=== PATIENT | female | born 1960 | race Caucasian/White ===

== ENCOUNTER 2018-11-22 13:32 | Outpatient (CLI) | payer MEDICARE, MEDICAID ==
--- NOTE | 2018-11-22 15:43 | MRI ---
MRI RIGHT SHOULDER 11/22/18 PROVIDED CLINICAL HISTORY: Right shoulder pain. FINDINGS: There is full thickness, essentially full width retracted tearing of the supraspinatus tendon to abou t the level of the acromion. Partial thickness undersurface tearing the cranial fibers of the subscap ularis is suspected. Components of the rotator cuff appear otherwise intact. There is medial subluxat ion of the long head biceps tendon within the bicipital groove. Evaluation of the long head biceps te ndon integrity is limited given the patient motion on the axial sequence. There is signal alteration present in the region of the superior labrum that may reflect SLAP tear. There is a mild glenohumeral joint effusion. No focal articular cartilage defect is apparent. Acromioclavicular joint osteoarthrosis is demonstrated, with mild mass effect upon the subjacent supr aspinatus. There is mild supraspinatus muscular volume loss without fatty infiltration. No focal conc erning regional marrow or muscular signal abnormality is evident. IMPRESSION: 1. Full thickness, full width retracted supraspinatus tendon tear. 2. Partial thickness undersurface tear involving the cranial fibers of subscapularis is suspecte d. 3. Medial subluxation of the long head biceps tendon within the bicipital groove, which may refl ect bicipital sling injury. 4. Findings suspicious for SLAP tear. 5. Mild glenohumeral joint effusion. 6. Acromioclavicular joint osteoarthrosis. POS: [facility]
== END 2018-11-22 13:33 | disposition home or self-care (01) ==
LOC: BICMRI 13:32
PROVIDERS: ATTEND Family Medicine
DX: M25.511 Pain in right shoulder (principal); M75.101 Unspecified rotator cuff tear or rupture of right shoulder, not specified as traumatic; S43.081A Other subluxation of right shoulder joint, initial encounter; M25.411 Effusion, right shoulder; M19.011 Primary osteoarthritis, right shoulder